=== PATIENT | female | born 2000 | race Caucasian/White ===

== ENCOUNTER → 2022-07-08 10:08 | Outpatient (BNVA) | payer OTHER, BC, SELFPAY | PROVIDERS: Family Provider Nurse Practitioner; PCP Nurse Practitioner Family; Visit Provider Internal Medicine | DX: M25.50 Pain in unspecified joint (principal); L40.50 Arthropathic psoriasis, unspecified | CPT/HCPCS: 36415; 80053; 82784; 83516; 85025; 85651; 86003; 86008; 86140; 86480; 86704; 86803; 87340 ==

== ENCOUNTER → 2023-01-08 16:08 | Outpatient (BNVA) | payer BC, SELFPAY | PROVIDERS: Family Provider Nurse Practitioner; PCP Nurse Practitioner Family; Visit Provider Internal Medicine | DX: F90.9 Attention-deficit hyperactivity disorder, unspecified type (principal); M25.50 Pain in unspecified joint; L40.50 Arthropathic psoriasis, unspecified; R21 Rash and other nonspecific skin eruption | CPT/HCPCS: 36415; 80053; 85025; 85651; 86140 ==

== ENCOUNTER → 2023-04-22 09:00 | Outpatient (BNVA) | payer BC, SELFPAY | PROVIDERS: Family Provider Nurse Practitioner; Visit Provider Nurse Practitioner Women's Health | DX: Z01.419 Encounter for gynecological examination (general) (routine) without abnormal findings (principal); O03.9 Complete or unspecified spontaneous abortion without complication | CPT/HCPCS: 84702; 85025; 86850; 86900 ==

== ENCOUNTER → 2023-04-29 11:50 | Outpatient (BNVA) | payer BC, SELFPAY | PROVIDERS: Family Provider Nurse Practitioner; Visit Provider Nurse Practitioner Women's Health | DX: O03.9 Complete or unspecified spontaneous abortion without complication (principal) | CPT/HCPCS: 84702; 85025 ==

== ENCOUNTER → 2023-05-05 10:20 | Outpatient (BNVA) | payer BC, SELFPAY | PROVIDERS: Family Provider Nurse Practitioner; Visit Provider Nurse Practitioner Women's Health | DX: O03.9 Complete or unspecified spontaneous abortion without complication (principal); D64.9 Anemia, unspecified | CPT/HCPCS: 82607; 82728; 82746; 83550; 84702 ==

== ENCOUNTER → 2023-05-13 09:44 | Outpatient (BNVA) | payer BC, SELFPAY | PROVIDERS: Family Provider Nurse Practitioner; Visit Provider Nurse Practitioner Women's Health | DX: Z30.9 Encounter for contraceptive management, unspecified (principal); O03.9 Complete or unspecified spontaneous abortion without complication | CPT/HCPCS: 81025; 84702 ==

== ENCOUNTER 2023-05-14 09:15 | Oncology outpatient (recurring) (ONCR) | payer BC, SELFPAY ==
[2023-05-14] MEDS: acetaminophen 325 mg Tablet 650 MG PO (10:00)
[2023-05-14] MEDS: sodium chloride 0.9% 500 ML 100 ML IV (10:02)
[2023-05-14] MEDS: diphenhydrAMINE 50 mg/mL SDV 1mL 25 MG IVP (10:02)
[2023-05-14 10:05] VITALS: BP 114/79; PULSE 78; RESP 17; TEMP 36.6; O2SAT 100
[2023-05-14] MEDS: iron dextran 25 MG in SYRINGE 1 EACH 30 MG IVP (10:33)
== END 2023-06-01 23:59 | disposition home or self-care (01) ==
LOC: ONCMED 09:16
PROVIDERS: Family Provider Nurse Practitioner; Visit Provider Nurse Practitioner Women's Health
DX: D64.9 Anemia, unspecified (principal)
CPT/HCPCS: 96374; 96375; J1200; J1750; J7040

== ENCOUNTER → 2023-06-18 13:37 | Outpatient (BNVA) | payer BC, SELFPAY | PROVIDERS: Family Provider Nurse Practitioner; PCP Nurse Practitioner Family; Visit Provider Internal Medicine | DX: M25.50 Pain in unspecified joint (principal); L40.50 Arthropathic psoriasis, unspecified; R21 Rash and other nonspecific skin eruption | CPT/HCPCS: 36415; 80053; 85025; 85651; 86140 ==